=== PATIENT | male | born 1950 | race Caucasian/White ===

== ENCOUNTER 2019-12-14 07:09 | Day surgery (SDC) | payer OTHER ==
[~2019-12-14] VITALS: Ht 172.7 cm; Wt 88.5 kg
[~2019-12-14 07:09] MED LIST: IBUP200T76 PO; TRAM50TA2 PO; UMEC1AER IN
[2019-12-14] MEDS ORDERED: ceFAZolin 1GM/50ML 100 ML IV ONE (07:32)
[2019-12-14] MEDS ORDERED: fentaNYL CITRATE 100 MCG/2 ML VL ONE (08:41)
[2019-12-14] MEDS ORDERED: PROPOFOL 10 MG/ML 20 ML IV ONE (08:42)
[2019-12-14] MEDS ORDERED: ONDANSETRON HCL 4 MG/2 ML VIAL ONE (08:42)
[2019-12-14] MEDS ORDERED: MIDAZOLAM HCL 1MG/1ML-2 ML VIAL ONE (08:42)
[2019-12-14] MEDS ORDERED: LIDOCAINE W/ EPINEPHRINE 1% 20ML VIAL ONE ×2 (09:18)
[2019-12-14] MEDS ORDERED: BUPIVACAINE 0.25% INJ 50ML VIAL ONE (09:18)
[2019-12-14] MEDS ORDERED: MORPHINE SULFATE 4 MG/ML SYR/VIAL IV PRN (09:30)
[2019-12-14] MEDS ORDERED: HYDROmorphone HCL 2 MG/ML VL IV PRN (09:30)
[2019-12-14] MEDS ORDERED: ONDANSETRON HCL 4 MG/2 ML VIAL IV PRN (09:30)
[2019-12-14] MEDS ORDERED: fentaNYL CITRATE 100 MCG/2 ML VL IV PRN (09:30)
[2019-12-14] MEDS ORDERED: HYDR-4833 PO (10:23)
[2019-12-14] MEDS ORDERED: DOCU-94 PO (10:23)
[2019-12-14 10:45] VITALS: BP 132/77
== END 2019-12-14 10:53 | disposition home or self-care (01) ==
LOC: SUR 07:09
PROVIDERS: ATTEND Surgery
DX: L72.3 Sebaceous cyst (principal); L72.0 Epidermal cyst; J44.9 Chronic obstructive pulmonary disease, unspecified; E66.9 Obesity, unspecified; L28.1 Prurigo nodularis; Z68.29 Body mass index [BMI] 29.0-29.9, adult; Z79.899 Other long term (current) drug therapy; Z98.890 Other specified postprocedural states; Z11.59 Encounter for screening for other viral diseases
CPT/HCPCS: 11403; 12034; J0690; J2250; J2405; J2704; J3010; J3490; J7030; U0003; A4565

== ENCOUNTER 2021-04-09 07:15 | Day surgery (SDC) | payer OTHER ==
[2021-04-09] VITALS (8 sets, daily range): BP systolic 119–156; BP diastolic 82–105
[~2021-04-09] VITALS: Ht 172.7 cm; Wt 90.7 kg
[~2021-04-09 07:15] MED LIST changes: +ALB2.5IS NEB; +ASPI1TAB19 PO; +ATOR10TA52 PO; +FLUT110A INH; -IBUP200T76 PO; -TRAM50TA2 PO
[2021-04-09] MEDS ORDERED: LIDOCAINE 2%HCL (LOCAL ANESTH.) INJ 20ML MDV ONE (08:06)
[2021-04-09] MEDS ORDERED: IODIXANOL 320MG/ML 100ML BTL IV ONE (08:06)
[2021-04-09] MEDS ORDERED: ANGIOMAX 250 MG VIAL IV ONE (08:34)
[2021-04-09] MEDS ORDERED: fentaNYL CITRATE 100 MCG/2 ML VL ONE (08:34)
[2021-04-09] MEDS ORDERED: MIDAZOLAM HCL 2MG/2ML 2ml VIAL (1mg/ml) ONE (08:34)
[2021-04-09] MEDS ORDERED: SODIUM CHL 0.9% 0 ML ONE (08:35)
[2021-04-09] MEDS ORDERED: VERAPAMIL 2.5MG/ML INJ 2ML VIAL IV ONE (08:40)
[2021-04-09] MEDS ORDERED: HEPARIN SODIUM (PORCINE) 5000 UNITS/ML 1ML VIAL ONE ×3 (08:53→08:54)
== END 2021-04-09 11:44 | disposition home or self-care (01) ==
LOC: CATH 07:15
PROVIDERS: ATTEND Internal Medicine
DX: I25.118 Atherosclerotic heart disease of native coronary artery with other forms of angina pectoris (principal); E78.5 Hyperlipidemia, unspecified; J98.4 Other disorders of lung; J44.9 Chronic obstructive pulmonary disease, unspecified; Z20.822 Contact with and (suspected) exposure to COVID-19; Z87.891 Personal history of nicotine dependence; Z79.82 Long term (current) use of aspirin; Z79.899 Other long term (current) drug therapy; Z68.30 Body mass index [BMI] 30.0-30.9, adult
CPT/HCPCS: 93458; C1769; C1887; C1894; J1644; J2250; J3010; J7030; Q9967; U0003; 99152